=== PATIENT | female | born 1995 | race Caucasian/White ===

== ENCOUNTER 2016-08-03 14:28 | Emergency (ER) | payer BC ==
[2016-08-03 14:52] VITALS: RESP 18
--- NOTE | 2016-08-03 15:31 | ED ---
Pediatric GI HPI - General Chief Complaint: Abdominal Pain Stated Complaint: left flank pain Time Seen by Provider: 08/03/16 14:55 Source: patient Mode of arrival: ambulatory Limitations: no limitations - History of Present Illness Initial Comments: This patient is a 21-year-old woman who presents to be evaluated for left flank pain. She has been having episodes of this since early May. The pain did recur yesterday late in the evening or early this morning. She indicates the left flank area. She indicates the pain is severe, sharp, intermittent as mentioned before. The pain can last hours at a time. She states that her last bowel movement was this morning and was normal. She has not noted any change in urination. She has started her menses yesterday, but denies any vaginal discharge. MD Complaint: flank pain -: month(s) Fever: No Activity Level at Home: normal Place: work Pain Location: L flank Radiation: none Quality: sharp Consistency: intermittent Improves With: nothing Worsens With: nothing Associated Symptoms: none - Related Data Home Medications Medication Instructions Recorded Confirmed Gianvi 1 tab PO HS 08/03/16 08/03/16 Ibuprofen [Motrin] 400 mg PO Q6HR PRN 08/03/16 08/03/16 Previous Rx's Medication Instructions Recorded Hydrocodone/Acetaminophen [Mesa 1 each PO Q6HR PRN #16 tab 08/03/16 5-325] Ondansetron Odt [Zofran ODT] 4 mg PO Q8HR PRN #10 tab 08/03/16 Tamsulosin [Flomax] 0.4 mg PO DAILY #14 cap 08/03/16 Allergies Allergy/AdvReac Type Severity Reaction Status Date / Time No Known Allergies Allergy Verified 08/03/16 15:38 Review of Systems ROS Statement: Those systems with pertinent positive or pertinent negative responses have been documented in the HPI. ROS Other: All systems not noted in ROS Statement are negative. Constitutional: Denies: fever, chills Respiratory: Denies: cough, dyspnea Cardiovascular: Denies: chest pain, palpitations, edema Gastrointestinal: Reports: abdominal pain. Denies: nausea, vomiting, diarrhea, constipation, melena, hematochezia Genitourinary: Denies: dysuria, hematuria, discharge, abnormal menses Musculoskeletal: Denies: back pain Skin: Denies: rash, lesions Hematological/Lymphatic: Denies: easy bleeding Past Medical History Past Medical History: No Reported History History of Any Multi-Drug Resistant Organisms: None Reported Past Surgical History: No Surgical Hx Reported Past Psychological History: No Psychological Hx Reported Smoking Status: Never smoker Past Alcohol Use History: None Reported Past Drug Use History: None Reported General Exam Limitations: no limitations General appearance: alert, in no apparent distress Head exam: Present: atraumatic, normocephalic Eye exam: Present: normal appearance. Absent: scleral icterus, conjunctival injection ENT exam: Present: normal oropharynx, mucous membranes moist Neck exam: Present: normal inspection Respiratory exam: Present: normal lung sounds bilaterally. Absent: respiratory distress, wheezes, rales, rhonchi, stridor Cardiovascular Exam: Present: regular rate, normal rhythm, normal heart sounds. Absent: systolic murmur, diastolic murmur, rubs, gallop GI/Abdominal exam: Present: soft, normal bowel sounds. Absent: distended, tenderness, guarding, rebound, rigid, mass, pulsatile mass, hernia Extremities exam: Present: normal inspection, normal capillary refill. Absent: pedal edema, calf tenderness Back exam: Present: normal inspection. Absent: CVA tenderness (R), CVA tenderness (L), vertebral tenderness Neurological exam: Present: alert, normal gait Skin exam: Present: warm, dry, intact, normal color. Absent: rash Course Vital Signs 08/03/16 08/03/16 08/03/16 14:46 16:29 17:30 Temperature 99.2 F 97.5 F L 99.4 F Pulse Rate 94 100 103 H Respiratory 18 18 18 Rate Blood Pressure 126/81 126/75 115/68 O2 Sat by Pulse 100 100 100 Oximetry Medical Decision Making - Lab Data Result diagrams: 08/03/16 15:23 08/03/16 15:23 Lab Results 08/03/16 08/03/16 08/03/16 Range/Units 15:23 15:23 15:23 WBC (4.0-11.0) k/uL RBC (3.80-5.40) m/uL Hgb (11.4-16.0) gm/dL Hct (34.0-46.0) % MCV (80.0-100.0) fL MCH (25.0-35.0) pg MCHC (31.0-37.0) g/dL RDW (11.5-15.5) % Plt Count (150-450) k/uL Neutrophils % % Lymphocytes % % Monocytes % % Eosinophils % % Basophils % % Neutrophils # (1.3-7.7) k/uL Lymphocytes # (1.0-4.8) k/uL Monocytes # (0-1.0) k/uL Eosinophils # (0-0.7) k/uL Basophils # (0-0.2) k/uL Sodium 141 (137-145) mmol/L Potassium 4.0 (3.5-5.1) mmol/L Chloride 105 (98-107) mmol/L Carbon Dioxide 21 L (22-30) mmol/L Anion Gap 15 mmol/L BUN 13 (7-17) mg/dL Creatinine 0.99 (0.52-1.04) mg/dL Est GFR (MDRD) Af Amer >60 (>60 ml/min/1.73 sqM) Est GFR (MDRD) Non-Af >60 (>60 ml/min/1.73 sqM) Glucose 106 H (74-99) mg/dL Calcium 10.3 H (8.4-10.2) mg/dL Urine Color Light Yellow Urine Appearance Clear (Clear) Urine pH 6.5 (5.0-8.0) Ur Specific Sparks 1.004 (1.001-1.035) Urine Protein Negative (Negative) Urine Glucose (UA) Negative (Negative) Urine Ketones Negative (Negative) Urine Blood Trace H (Negative) Urine Nitrate Negative (Negative) Urine Bilirubin Negative (Negative) Urine Urobilinogen <2.0 (<2.0) mg/dL Ur Leukocyte Esterase Negative (Negative) Urine RBC 1 (0-5) /hpf Urine WBC 2 (0-5) /hpf Ur Squamous Epith Cells <1 (0-4) /hpf Urine Mucus Rare H (None) /hpf Urine HCG, Qual Not Detected (Not Detectd) 08/03/16 Range/Units 15:23 WBC 10.5 (4.0-11.0) k/uL RBC 4.97 (3.80-5.40) m/uL Hgb 15.3 (11.4-16.0) gm/dL Hct 43.2 (34.0-46.0) % MCV 87.0 (80.0-100.0) fL MCH 30.8 (25.0-35.0) pg MCHC 35.4 (31.0-37.0) g/dL RDW 11.8 (11.5-15.5) % Plt Count 259 (150-450) k/uL Neutrophils % 74 % Lymphocytes % 20 % Monocytes % 3 % Eosinophils % 1 % Basophils % 1 % Neutrophils # 7.8 H (1.3-7.7) k/uL Lymphocytes # 2.1 (1.0-4.8) k/uL Monocytes # 0.3 (0-1.0) k/uL Eosinophils # 0.1 (0-0.7) k/uL Basophils # 0.1 (0-0.2) k/uL Sodium (137-145) mmol/L Potassium (3.5-5.1) mmol/L Chloride (98-107) mmol/L Carbon Dioxide (22-30) mmol/L Anion Gap mmol/L BUN (7-17) mg/dL Creatinine (0.52-1.04) mg/dL Est GFR (MDRD) Af Amer (>60 ml/min/1.73 sqM) Est GFR (MDRD) Non-Af (>60 ml/min/1.73 sqM) Glucose (74-99) mg/dL Calcium (8.4-10.2) mg/dL Urine Color Urine Appearance (Clear) Urine pH (5.0-8.0) Ur Specific Sparks (1.001-1.035) Urine Protein (Negative) Urine Glucose (UA) (Negative) Urine Ketones (Negative) Urine Blood (Negative) Urine Nitrate (Negative) Urine Bilirubin (Negative) Urine Urobilinogen (<2.0) mg/dL Ur Leukocyte Esterase (Negative) Urine RBC (0-5) /hpf Urine WBC (0-5) /hpf Ur Squamous Epith Cells (0-4) /hpf Urine Mucus (None) /hpf Urine HCG, Qual (Not Detectd) Disposition Clinical Impression: Calculus of kidney, Flank pain, Gastroenteritis Disposition: HOME SELF-CARE Condition: Good Instructions: Flank Pain (ED), Kidney Stones (ED) Prescriptions: Hydrocodone/Acetaminophen [Mesa 5-325] 1 each PO Q6HR PRN #16 tab PRN Reason: Pain Ondansetron Odt [Zofran ODT] 4 mg PO Q8HR PRN #10 tab PRN Reason: Nausea Tamsulosin [Flomax] 0.4 mg PO DAILY #14 cap Referrals: Amanda Coleman MD [Primary Care Provider] - 1-2 days Glenn Dodd MD [STAFF PHYSICIAN] - 1-2 days
[2016-08-03 15:45] LABS: Appearance,Urine Clear (Clear); Bilirubin,Urine Negative (Negative); Glucose,Urine (UA) Negative (Negative); Ketones,Urine Negative (Negative); Leukocyte Esterase,Urine Negative (Negative); Mucus,Urine Rare /hpf; Nitrite,Urine Negative (Negative); PH, Urine 6.5 (5.0-8.0); Particle Count 806; Protein,Urine Negative (Negative); RBC,Urine 1 /hpf (0-5); Specific Gravity,Urine 1.004 (1.001-1.035); Squamous Epithelial Cell,Urine <1 /hpf (0-4); UA Billing (MACRO vs. MICRO) MICRO; Urobilinogen,Urine <2.0 mg/dL (<2.0); WBC,Urine 2 /hpf (0-5)
[2016-08-03 15:47] LABS: Basophils # (A) 0.1 k/uL (0-0.2); Basophils % (A) 1 %; CH 30.1; CHCM 34.7; Eosinophils # (A) 0.1 k/uL (0-0.7); Eosinophils % (A) 1 %; HCT 43.2 % (34.0-46.0); HDW 2.23; HGB 15.3 gm/dL (11.4-16.0); Luc % (Auto) 2; Lymphocytes # (A) 2.1 k/uL (1.0-4.8); Lymphocytes % (A) 20 %; MCH 30.8 pg (25.0-35.0); MCHC 35.4 g/dL (31.0-37.0); Mean Platelet Volume 7.2; Monocytes # (A) 0.3 k/uL (0-1.0); Monocytes % (A) 3 %; Neutrophils # (A) 7.8 k/uL (1.3-7.7); Neutrophils % (A) 74 %; RBC 4.97 m/uL (3.80-5.40); RDW 11.8 % (11.5-15.5); WBC 10.5 k/uL (4.0-11.0); WBC (Perox) 10.36
[2016-08-03 15:57] LABS: Anion Gap 15 mmol/L; Blood Urea Nitrogen 13 mg/dL (7-17); Calcium 10.3 mg/dL (8.4-10.2); Carbon Dioxide 21 mmol/L (22-30); Chloride 105 mmol/L (98-107); Glucose 106 mg/dL (74-99); Non-African American GFR(MDRD) >60 (>60 ml/min/1.73 sqM); Sodium 141 mmol/L (137-145)
[2016-08-03] MEDS ORDERED: KETOROLAC 30 MG/ML 1 ML VIAL IVP STA (16:08)
--- NOTE | 2016-08-03 16:25 | CT ---
EXAMINATION TYPE: CT abdomen pelvis wo con DATE OF EXAM: 08/03/2016 4:01 PM COMPARISON: NONE INDICATION: Left sided flank pain DLP: 224.5 mGycm, Automated exposure control for dose reduction was used. CONTRAST: None Study performed without Oral Contrast TECHNIQUE: Axial images were obtained from above the diaphragm to the pubic rami in the axial plane a t 5 mm thick sections. Reconstructed images are reviewed on the computer in the coronal plane. FINDINGS: Limited CT sections are obtained the lung bases. The lung bases are clear. CT ABDOMEN: Liver: Normal Spleen: Normal Pancreas: Normal Adrenal glands: The adrenal glands are normal. Gallbladder: Normal Kidneys: No masses are evident. No hydronephrosis is present. No cysts are present. Multiple calci fications are within the bilateral kidneys. Superior pole left kidney is a 0.2 cm calcification. Ther e is a 0.3 cm calcification in the anterior mid left kidney. There is an approximately 0.4 cm area of increased density within the superior pole right kidney may represent multiple small cortical medull alison stones. A 0.4 cm calcification at the inferior pole of the left kidney. Aorta: Normal Inferior vena cava: Normal. CT PELVIS: Loops of bowel without contrast within the abdomen and pelvis appear unremarkable. Diverticular ng es may be within the lower colon. Appendix: Normal as visualized. Urinary bladder: Normal. Genitourinary structures: Uterus and ovaries appear normal. Tampon is likely present. Osseous structures: No suspicious lytic or sclerotic lesions. IMPRESSIONS: 1. Multiple nonobstructing bilateral renal stones. Consider medullary sponge kidney within the diffe rential. 2. Mild diverticulosis without acute diverticulitis.
[2016-08-03] MEDS ORDERED: TAMSULOSIN 0.4 MG CAP.ER.24H PO STA (17:34)
[2016-08-03 17:41] VITALS: BP 115/68; PULSE 103; TEMP 99.4
== END 2016-08-03 17:58 | disposition home or self-care (01) ==
LOC: EC 14:28
DX: K52.9 Noninfective gastroenteritis and colitis, unspecified (principal); N20.0 Calculus of kidney; Z79.899 Other long term (current) drug therapy; Z53.20 Procedure and treatment not carried out because of patient's decision for unspecified reasons
CPT/HCPCS: 36415; 74176; 80048; 81001; 81025; 85025; 99284

== ENCOUNTER → 2016-08-08 | Outpatient (CLI) | payer BC ==
--- NOTE | 2016-08-08 17:08 | XR ---
EXAMINATION TYPE: XR KUB DATE OF EXAM: 08/08/2016 4:51 PM COMPARISON: NONE HISTORY: Renal calculus TECHNIQUE: Single view FINDINGS: There is no sign of intestinal obstruction or pneumoperitoneum. Fecal pattern is normal. Th ere is no evidence of a mass. There are no pathologic calcifications over the kidneys. Bony structure s appear intact. IMPRESSION: Nonacute abdomen. There are low-density calcifications in the kidneys on the old CT scan of 08/03/2016 that are probably not visible on plain x-ray.
== END | disposition home or self-care (01) ==
LOC: RADXRMAIN 16:38
PROVIDERS: ATTEND Urology
DX: N20.1 Calculus of ureter (principal)
CPT/HCPCS: 74000

== ENCOUNTER → 2016-08-08 | Outpatient (CLI) | payer BC | END | disposition home or self-care (01) | LOC: LABWHC1 16:50 | PROVIDERS: ATTEND Urology | DX: E83.52 Hypercalcemia (principal) | CPT/HCPCS: 36415; 82310; 83970 ==

== ENCOUNTER → 2019-06-03 | Outpatient (CLI) | payer BC ==
--- NOTE | 2019-06-04 04:19 | CT ---
EXAMINATION TYPE: CT abdomen pelvis wo con DATE OF EXAM: 06/03/2019 COMPARISON: 08/03/2016 HISTORY: 24-year-old female Left side flank pain. CT DLP: 475 mGycm. Automated exposure control for dose reduction was used. TECHNIQUE: Contiguous axial scanning of the abdomen and pelvis without IV contrast. Coronal and sagit maria ines reconstructions performed. FINDINGS: Heart normal size without pericardial effusion. Lung bases clear without pleural effusion. Noncontrast appearance of the liver, gallbladder, adrenal glands, spleen, and pancreas show no gross abnormality. Tiny fatty attenuating cortical lesion measuring 5 mm within the posterior right kidney could represe nt a small incidental, benign AML. Punctate 2 mm nonobstructive left lower pole renal calculus. No additional nephrolithiasis or hydrone phrosis is seen. The previously seen 3 mm calcification in the left side of the pelvis is no longer i dentified and may have corresponded to a distal left ureteral calculus on the 2017 exam. Scattered mild stool burden. No dilated small bowel, free fluid, or free air. Overall paucity of intra-abdominal fat limits assessment for abdominal or pelvic lymph nodes. No obvi ous lymphadenopathy is identified. Bladder partially distended. Uterus is retroverted. A tampon is in place. Both ovaries are visualized. 1.6 cm dominant follicle or functional cyst within left ovary. F ollicular change of the right ovary. No abnormal fluid collection seen in the pelvis. Bones: Transitional lumbosacral segment with bilateral L5 hemisacralization and some degenerative jeremy nge of the left-sided assimilation joint. IMPRESSION: 1. Punctate nonobstructive 2 mm left lower pole renal calculus. No hydronephrosis. 2. The previously seen 3 mm calcification in the left side of the pelvis is no longer identified and mass corresponded to a distal left ureteral calculus on the 2017 exam.
== END | disposition home or self-care (01) ==
LOC: RADCTMAIN 15:34
PROVIDERS: ATTEND Urology
DX: N20.0 Calculus of kidney (principal)
CPT/HCPCS: 74176

== ENCOUNTER → 2020-09-02 | Outpatient (CLI) | payer BC ==
--- NOTE | 2020-09-02 09:56 | MR ---
EXAMINATION TYPE: MR brain wo/w con DATE OF EXAM: 09/02/2020 COMPARISON: None HISTORY: Loss of peripheral vision rt eye, papillitis. TECHNIQUE: Multiplanar, multisequence images of the brain and brainstem is performed without and with IV contras t, utilizing 5.5 mL intravenous Gadavist . FINDINGS: The intraorbital contents including the optic nerve and optic nerve sheaths are normal and symmetric bilaterally.. The ventricles, basal cisterns and sulci over the convexities are within normal limits and there is n o mass, mass effect or shift of midline structures. No abnormal density is seen throughout the brain parenchyma. On diffusion-weighted imaging, there is no diffusion restriction or evidence for acute ischemic infar ct. The posterior fossa including the brainstem, fourth ventricle and cerebellar pontine angles appear no rmal. Following contrast administration there is no pathological enhancement. IMPRESSION: No significant abnormality seen
== END | disposition home or self-care (01) ==
LOC: RADMRIMAIN 08:04
PROVIDERS: ATTEND Ophthalmology
DX: H46.03 Optic papillitis, bilateral (principal)
CPT/HCPCS: 70553; A9585